=== PATIENT | male | born 1990 | race African-American/Black ===

== ENCOUNTER 2024-08-11 12:02 | Inpatient (IN) | payer OTHER ==
[2024-08-11 12:45] VITALS: BMI 30.3
[2024-08-11] MEDS ORDERED: hydrOXYzine PAMOATE 25 MG CAPSULE (FP) PO PRN (14:31)
[2024-08-11] MEDS ORDERED: IBUPROFEN 600 MG TABLET (FP) PO PRN (14:31)
[2024-08-11] MEDS ORDERED: POLYETHYLENE GLYCOL (HEALTHYLAX) 3350 17 GM PACKET PO PRN (14:31)
[2024-08-11] MEDS ORDERED: BENZONATATE 200 MG CAPSULE PO PRN (14:31)
[2024-08-11] MEDS ORDERED: DICYCLOMINE HCL 10 MG CAPSULE PO PRN (14:31)
[2024-08-11] MEDS ORDERED: LOPERAMIDE HCL 2 MG CAPSULE PO PRN (14:31)
[2024-08-11] MEDS ORDERED: NALOXONE (NYS OPIOID OVERDOSE PROGRAM) 4 MG/0.1 ML SPRAY NS PRN (14:31)
[2024-08-11] MEDS ORDERED: IBUPROFEN 400 MG TABLET (FP) PO PRN (14:31)
[2024-08-11] MEDS ORDERED: BISMUTH SUBSALICYLATE 524 MG/30 ML PO PRN (14:31)
[2024-08-11] MEDS ORDERED: BENZOCAINE/MENTHOL (CHLORASEPTIC ) LOZENGE MM PRN (14:31)
[2024-08-11] MEDS ORDERED: MAG HYDROX/AL HYDROX/SIMETH 30 ML UNIT-DOSE CUP PO PRN (14:31)
[2024-08-11] MEDS ORDERED: NALOXONE (NARCAN) HCL 4 MG/0.1 ML SPRAY NS PRN (14:31)
[2024-08-11] MEDS ORDERED: ONDANSETRON *ODT* 4 MG TABLET SL PRN (14:31)
[2024-08-11] MEDS ORDERED: chlordiazePOXIDE HCL 25 MG CAPSULE PO PRN (14:31)
[2024-08-11] MEDS ORDERED: guaiFENesin 600 MG TABLET.ER (FP) PO PRN (14:31)
[2024-08-11] MEDS ORDERED: MAGNESIUM HYDROX 2400MG/30ML ORAL SUSPENSION 30 ML CUP PO PRN (14:31)
[2024-08-11] MEDS ORDERED: ACETAMINOPHEN 325 MG TABLET (FP) PO PRN (14:31)
[2024-08-11] MEDS ORDERED: BICTEGRAV/EMTRICIT/TENOFOV (BIKTARVY) 50-200-25 MG TABLET PO SCH (14:45)
[2024-08-11] MEDS: NICOTINE 21 MG/24 HOURS TOPICAL PATCH TD SCH (18:33)
[2024-08-11] MEDS: PRENATAL VITAMINS W/ FOLIC ACID TABLET (FP) PO SCH (18:35)
[2024-08-11] MEDS: NALTREXONE HCL 50 MG TABLET PO ONE ×2 (18:50→18:51)
[2024-08-11] MEDS: THIAMINE 100 MG TABLET PO SCH (22:20)
[2024-08-11] MEDS: chlordiazePOXIDE HCL 25 MG CAPSULE PO SCH (22:20)
[2024-08-11] MEDS: MELATONIN 5 MG TABLETS PO SCH (22:20)
[2024-08-11] MEDS: risperiDONE 1 MG TABLET PO SCH (22:20)
[2024-08-11] MEDS: METHOCARBAMOL 500 MG TABLET PO PRN (22:21)
[2024-08-12] MEDS: BICTEGRAV/EMTRICIT/TENOFOV (BIKTARVY) 50-200-25 MG TABLET PO SCH (10:30)
[2024-08-12] MEDS: NICOTINE POLACRILEX 2 MG GUM BUC PRN (10:31)
[2024-08-12] MEDS: NALTREXONE HCL 50 MG TABLET PO SCH (10:31)
[2024-08-12 11:20] LABS: HEMATOCRIT 37.5 % (35.4-49); HEMOGLOBIN 12.9 GM/dL (11.7-16.9); MCH 31.8 pg (25.7-33.7); MCHC 34.4 g/dl (32.0-35.9); MEAN CELL VOLUME 92.3 fl (80-96); MEAN PLT VOLUME 7.1 fl (7.5-11.1); PLATELET COUNT 208 10^3/uL (134-434); RBC 4.06 M/mm3 (4.00-5.60); RDW 13.3 % (11.9-15.9); WHITE BLOOD COUNT 2.6 K/mm3 (4.0-10.0)
[2024-08-12 11:32] LABS: CHLORIDE 108 mmol/L (98-107); POTASSIUM 3.8 mmol/L (3.5-5.1); SODIUM 140 mmol/L (136-145)
[2024-08-12 11:46] LABS: CALCIUM 9.1 mg/dL (8.5-10.1)
[2024-08-12 11:47] LABS: ALBUMIN 3.7 g/dl (3.4-5.0); ANION GAP 4 mmol/L (4-13); BLOOD UREA NITROGEN 11.8 mg/dL (7-18); CO2 27 mmol/L (21-32); GLUCOSE,RANDOM 116 mg/dL (74-106)
[2024-08-12 11:50] LABS: CREATININE 1.2 mg/dL (0.55-1.3); SGOT/AST 38 U/L (15-37); SGPT/ALT 26 U/L (13-61)
[2024-08-12 11:51] LABS: BILIRUBIN,TOTAL 0.6 mg/dL (0.2-1); TOT PROT 7.9 g/dl (6.4-8.2)
[2024-08-12 11:53] LABS: ALK PHOS 99 U/L (45-117)
[2024-08-13] MEDS: chlordiazePOXIDE HCL 25 MG CAPSULE PO SCH (05:27)
[2024-08-13] MEDS: chlordiazePOXIDE HCL 10 MG CAPSULE PO SCH (13:31)
[2024-08-13 17:47] VITALS: BP 141/99; PULSE 103; RESP 18; TEMP 98.4
[2024-08-14] MEDS ORDERED: chlordiazePOXIDE HCL 10 MG CAPSULE PO PRN
[2024-08-14] MEDS ORDERED: chlordiazePOXIDE HCL 10 MG CAPSULE PO SCH ×2 (05:00)
[2024-08-15] MEDS ORDERED: chlordiazePOXIDE HCL 10 MG CAPSULE PO SCH (05:00)
[2024-08-16] MEDS ORDERED: chlordiazePOXIDE HCL 10 MG CAPSULE PO ONE (05:00)
== END 2024-08-13 17:13 | disposition left against medical advice (07) | DRG 770 ==
LOC: YASAS 12:02 → Y3N 17:32
PROVIDERS: ADMIT Allergy & Immunology; ATTEND Surgery
PROC: HZ2ZZZZ Detoxification Services for Substance Abuse Treatment (ICD-10-PCS; principal; 2024-08-11)
DX: F10.230 Alcohol dependence with withdrawal, uncomplicated (principal); F12.20 Cannabis dependence, uncomplicated; F17.210 Nicotine dependence, cigarettes, uncomplicated; F31.9 Bipolar disorder, unspecified; Z21 Asymptomatic human immunodeficiency virus [HIV] infection status; R73.03 Prediabetes
CPT/HCPCS: 36415; 80053; 80305; 80307; 85027; 86359; 86360; 86593; 86780; 93005; 93010